=== PATIENT | female | born 1990 | race Caucasian/White ===

== ENCOUNTER 2017-11-01 15:11 | Emergency (ER) | payer SELFPAY ==
[~2017-11-01] VITALS: Ht 154.9 cm; Wt 106.8 kg
[~2017-11-01 15:11] MED LIST: NAPROSYN500 MG PO; NO HOME MEDICATIONS; ULTRAM50 MG PO; ZOFRAN ODT4 MG PO
[2017-11-01 19:24] LABS: CHLORIDE 104 mEq/L (99-109); POTASSIUM 3.7 mEq/L (3.7-5.4); SODIUM 139 mEq/L (136-147)
[2017-11-01 19:25] LABS: GLUCOSE 95 mg/dL (70-99)
[2017-11-01 19:29] LABS: CREATININE 0.9 mg/dL (0.6-1.3); GFR ESTIMATE (CALCULATED) > 59 mL/min/
[2017-11-01 19:30] LABS: UREA NITROGEN (BUN) 8 mg/dL (9-23)
[2017-11-01 19:41] LABS: HEMATOCRIT 44.8 % (36.0-46.0); HEMOGLOBIN 14.8 G/DL (11.9-15.5); MCH 26.9 PG (29.0-34.0); MCV 81.3 FL (83-99); RBC DIS.WIDTH-CV 13.2 % (11.8-14.6); RBC DIS.WIDTH-SD 39.3 % (39-53); RED BLOOD COUNT 5.51 M/uL (3.80-5.20); WHITE BLOOD COUNT 5.3 K/uL (4.1-10.2)
[2017-11-01 19:49] LABS: QUANTITATIVE HCG < 4.0 MIU/ML
[2017-11-01 20:14] LABS: HEMATOLOGY COMMENT 1 SN; IMM.PLATELET FRACTION 32.7 (1-7); PLAT.SUFFICIENCY DECREASED; PLATELET COUNT 49 K/uL (156-360)
[2017-11-01 21:36] VITALS: BP 132/96
== END 2017-11-01 21:38 | disposition home or self-care (01) ==
LOC: EME 15:11
PROVIDERS: Physician Assistant
DX: J10.1 Influenza due to other identified influenza virus with other respiratory manifestations (principal); F17.200 Nicotine dependence, unspecified, uncomplicated
CPT/HCPCS: 71046; 80048; 84702; 85027; 99281; 99285; J7030